=== PATIENT | male | born 1945 | race Caucasian/White ===

== ENCOUNTER → 2020-05-06 10:34 | Outpatient (BNVA) | payer MEDICARE, SELFPAY | PROVIDERS: PCP Internal Medicine; Referring Provider Internal Medicine; Visit Provider Hospitalist | DX: J44.9 Chronic obstructive pulmonary disease, unspecified (principal); Z86.711 Personal history of pulmonary embolism | CPT/HCPCS: 99214 ==

== ENCOUNTER 2020-06-07 16:23 | Outpatient (REF) | payer MEDICARE, SELFPAY ==
--- NOTE | 2020-06-07 16:26 | CT_ITS ---
EXAMINATION: CT CHEST SCREENING CLINICAL INFORMATION: Lung cancer screening COMPARISON: Previous chest CT scans most recent July 2019 and chest x-ray most recent January 2020 TECHNIQUE: Multidetector volumetric CT imaging of the chest is performed without contrast using low dose technique. Additional 2D coronal and sagittal reformatted images and axial 3D maximum intensity projection (MIP) images are generated on the CT workstation. This CT examination was performed using dose optimization techniques as appropriate, variously including the following: *Automated exposure control *Adjustment of mA and/or kV according to patient size (this includes techniques or standardized protocols for targeted exams where dose is matched to indication/reason for exam; i.e. extremities or head) *Use of iterative reconstruction technique DLP: 55 mGy-cm FINDINGS: LUNGS: There is biapical pleural and parenchymal scarring. The small calcified and noncalcified pulmonary nodules are stable. Largest pulmonary nodule is a 3 mm peripheral or subpleural left lower lobe nodule axial image 434 series 5. The previously identified bronchopneumonia on July 2019 CTA has significantly improved. There is increasing subsegmental atelectasis or scarring at the lung bases. No endobronchial or endotracheal lesion. MEDIASTINUM: There is mild coronary artery calcification and aortic calcification. The mediastinum is otherwise normal. PLEURA: There is no pleural effusion. No pleural mass or thickening. AXILLA: No lymphadenopathy. UPPER ABDOMEN: Unremarkable OSSEOUS STRUCTURES: There are mild degenerative changes of the spine. CT/CT lung screening IMPRESSION: Stable small pulmonary nodules. Resolved bronchopneumonia from July 2019 chest CTA. Increasing atelectasis or scarring at the lung bases. Mild atherosclerotic disease and coronary artery calcification. ASSESSMENT: Lung-RADS category 2: Benign RECOMMENDATION: Annual low-dose chest CT follow-up recommended.
== END 2020-06-07 16:24 | disposition home or self-care (01) ==
LOC: HO.CT 16:23
PROVIDERS: Visit Provider Surgery
DX: Z12.2 Encounter for screening for malignant neoplasm of respiratory organs (principal); Z87.891 Personal history of nicotine dependence
CPT/HCPCS: 71250

== ENCOUNTER 2020-11-04 09:04 | Outpatient (REF) | payer MEDICARE, SELFPAY ==
--- NOTE | 2020-11-04 17:28 | PFT_ITS ---
Forced vital capacity moderately reduced. FEV1, EBT19-92 and MVV are markedly reduced. Post bronchodilator therapy, there is a significant improvement in FVC, FEV1, and GEB42-37. Total lung capacity normal. Residual volume is markedly increased. Diffusion capacity markedly decreased. CONCLUSION: Severe obstructive airway disorder with evidence of air trapping. Significant improvement after bronchodilator therapy is indicative of asthma/COPD overlap syndrome. Clinical correlation is recommended. MD WILLIAM Huertas/MONICO / [id number]
== END 2020-11-04 09:05 | disposition home or self-care (01) ==
LOC: HO.RESP 09:04
PROVIDERS: PCP Internal Medicine; Visit Provider Hospitalist
DX: J44.9 Chronic obstructive pulmonary disease, unspecified (principal)
CPT/HCPCS: 94060; 94727; 94729; 99212

== ENCOUNTER → 2022-01-10 09:17 | Outpatient (BNVA) | payer MEDICARE, SELFPAY | PROVIDERS: PCP Internal Medicine; Visit Provider Hospitalist | DX: J43.2 Centrilobular emphysema (principal) | CPT/HCPCS: Q3014 ==

== ENCOUNTER 2022-01-18 08:04 | Outpatient (REF) | payer MEDICARE, SELFPAY ==
--- NOTE | ~2022-01-18 | CT_ITS ---
EXAMINATION: CT CHEST SCREENING CLINICAL INFORMATION: Former smoker. Quit 10 years ago. 50 pack-year history. COMPARISON: Previous chest CT May 2020 TECHNIQUE: Multidetector volumetric CT imaging of the chest is performed without contrast using low dose technique. Additional 2D coronal and sagittal reformatted images and axial 3D maximum intensity projection (MIP) images are generated on the CT workstation. This CT examination was performed using dose optimization techniques as appropriate, variously including the following: *Automated exposure control *Adjustment of mA and/or kV according to patient size (this includes techniques or standardized protocols for targeted exams where dose is matched to indication/reason for exam; i.e. extremities or head) *Use of iterative reconstruction technique DLP: 57 mGy-cm FINDINGS: LUNGS: There is biapical pleural and parenchymal scarring. There is evidence of centrilobular emphysema. There are multiple small clustered peribronchial 1 to 2 mm bilateral lower lobe nodules. There is mild bronchial wall thickening and increased peribronchial attenuation in both lower lobes. This appears slightly increased from previous exam and suggestive of airways disease. Small pulmonary nodules are otherwise stable, largest measuring 3 mm in the peripheral or subpleural left lower lobe axial image 437 series 5. No endobronchial or endotracheal lesion is seen. MEDIASTINUM: There is coronary artery and aortic valve calcification. The mediastinum is otherwise normal. The visualized thyroid gland is normal. PLEURA: There is no pleural effusion. No pleural mass or thickening. AXILLA: No lymphadenopathy. UPPER ABDOMEN: There may be diverticulosis of the colon. OSSEOUS STRUCTURES: There are degenerative changes of the spine. CT/CT lung screening IMPRESSION: Mild emphysema. Stable biapical pleural parenchymal scarring. Small clustered peribronchial bilateral lower lobe nodule nodules, increased peribronchial attenuation and bronchial wall thickening. Findings are suggestive of airways disease. This is new or increased compared to May 2020 exam. Otherwise small coronary nodules are stable. Mild coronary artery and aortic valve calcification. ASSESSMENT: Lung-RADS category 2: Benign RECOMMENDATION: Annual low-dose chest CT follow-up recommended.
== END 2022-01-18 08:05 | disposition home or self-care (01) ==
LOC: HO.CT 08:04
PROVIDERS: PCP Internal Medicine; Visit Provider Physician Assistant Medical
DX: Z12.2 Encounter for screening for malignant neoplasm of respiratory organs (principal); Z87.891 Personal history of nicotine dependence
CPT/HCPCS: 71271

== ENCOUNTER 2023-01-19 07:48 | Outpatient (REF) | payer MEDICARE, SELFPAY ==
--- NOTE | ~2023-01-19 | CT_ITS ---
EXAMINATION: CT CHEST SCREENING CLINICAL INFORMATION: 50 pack year smoking history, quit 10 years ago. COMPARISON: 01/18/2022 TECHNIQUE: Multidetector volumetric CT imaging of the chest is performed without contrast using low dose technique. Additional 2D coronal and sagittal reformatted images and axial 3D maximum intensity projection (MIP) images are generated on the CT workstation. This CT examination was performed using dose optimization techniques as appropriate, variously including the following: *Automated exposure control *Adjustment of mA and/or kV according to patient size (this includes techniques or standardized protocols for targeted exams where dose is matched to indication/reason for exam; i.e. extremities or head) *Use of iterative reconstruction technique DLP: 53.76 mGy-cm FINDINGS: LUNGS: Emphysematous changes are again seen in the lungs. Biapical pleuroparenchymal scarring unchanged. Some mild bronchial thickening is noted, unchanged from prior. Scattered 1 to 2 mm nodules are present including areas in both lower lobes, right greater than left where there are innumerable tiny nodules/tree-in-bud densities which appear minimally more prominent than at the time of the prior study. The largest nodule measures about 4 mm and is pleural-based in the left lower lobe posterolaterally (5:435 compare prior 5:437) and is unchanged from prior. MEDIASTINUM: Heart size normal. No mediastinal or hilar lymphadenopathy. Calcifications are present in the aorta. CORONARY ARTERY CALCIFICATION: Moderate. PLEURA: There is no pleural effusion. No pleural mass or thickening. AXILLA: No lymphadenopathy. UPPER ABDOMEN: Unremarkable. OSSEOUS STRUCTURES: Unremarkable. CT/CT lung screening IMPRESSION: Pulmonary emphysema with peribronchial thickening and micronodules suggestive of airway disease. The number of tiny nodules at the lung bases appears slightly increased when compared to prior. ASSESSMENT: Lung-RADS category 2: Benign RECOMMENDATION: Routine annual low-dose CT screening in 12 months.
== END 2023-01-19 07:49 | disposition home or self-care (01) ==
LOC: HO.CT 07:48
PROVIDERS: PCP Internal Medicine; Visit Provider Physician Assistant Medical
DX: Z12.2 Encounter for screening for malignant neoplasm of respiratory organs (principal); Z87.891 Personal history of nicotine dependence
CPT/HCPCS: 71271

== ENCOUNTER 2023-03-07 18:51 | Emergency (ER) | payer MEDICARE, SELFPAY ==
[2023-03-07 19:08] VITALS: BP 183/78; PULSE 85; RESP 18; TEMP 36.8; O2SAT 95; BMI 25.1
--- NOTE | 2023-03-07 19:08 | ED_ITS ---
HPI - General Adult General Chief complaint: General Medical Stated complaint: high bp Time Seen by Provider: 03/07/23 21:10 Source: patient Mode of arrival: ambulatory Limitations: no limitations History of Present Illness HPI narrative: 77-year-old male who presents emergency department for evaluation of elevated blood pressure. The patient states that it was last appointment with his doctor, approximately 6 months prior, he had an elevated systolic blood pressure of 148. He decided to exercise and lose weight to see if this would improve his blood pressure. He states he has lost 10 lb intentionally. The patient bought a home blood pressure machine. He states that he was feeling well and had no symptoms. He checked his blood pressure at home and it was 186/120. He states that he waited a while then repeated his blood pressure and it was higher therefore he came to the emergency department for evaluation. He states that he has been feeling fine and he has had no symptoms. He denied headache, chest pain, shortness of breath, nausea, vomiting. Related Data Home Medications Medication Instructions Recorded Confirmed atorvastatin 20 mg tablet 20 mg PO DAILY 11/04/20 11/04/20 Previous Rx's Medication Instructions Recorded albuterol sulfate 90 mcg/actuation 2 puff PO Q4H PRN shortness of 01/10/22 aerosol inhaler breath or wheezing #8.5 grams Allergies Allergy/AdvReac Type Severity Reaction Status Date / Time No Known Allergies Allergy Verified 01/10/22 09:18 Review of Systems Review of Systems: Yes all other systems are reviewed and are negative PMFSH Past Medical History [facility] Narrative: Past medical history: Hyperlipidemia. Surgical history: Herniorrhaphy. Social history: The patient denies tobacco, alcohol and drug use. Medical History COPD (chronic obstructive pulmonary disease) Pneumonia Pulmonary embolism Family History Family History Father No problems noted. Social History Social History Patient Tobacco Use Status: Former Tobacco user Tobacco use type: Cigarette Years Smoked: 20 Years Advance Directives: No Advance Directives Information Provided: Yes Physical Exam ED Vital Signs: Vital Signs - 24 hr 03/07/23 19:08 03/07/23 21:09 Temperature 98.2 F 98.4 F Pulse Rate 85 69 Respiratory Rate 18 16 Blood Pressure 183/78 H 172/82 H Pulse Oximetry 95 8 L Oxygen Delivery Method Room Air Room Air BMI result Body Mass Index 25.1 Vital signs reviewed, patient has an elevated BP Exam: General: Awake, alert in no distress Head: Normocephalic, atraumatic EENT: PERRL, Lids normal, sclera normal, conjunctiva normal, nose normal , ears normal, throat without erythema or exudates Neck: Supple, no adenopathy, trachea midline and nontender Lung: breath sounds symmetric, no wheezing, rales or rhonchi Chest: symmetric movement, nontender Heart: regular rate and rhythm, normal S1, S2 no murmurs or rubs Abdomen: soft, non-tender, nondistended, normal bowel sounds Back: no vertebral tenderness, no CVAT Extremities: no deformities, moves all extremities symmetrically Skin: no rashes, no lesion, normal color and warmth Neuro: Awake, alert, oriented, normal speech, cranial nerves intact, moves all extremities symmetrically Psych: Pleasant, cooperative Course Course Course Narrative: RME - 77 yo male with history of COPD presents to the ER for evaluation of elevated BP readings at home. BP readings at home 186/100 and then 200 systolic so he came into the ER for evaluation. He is asymptomatic. He has no chest pain, headache, vision changes. No history of HTN. Not on any antihypertensive meds. Last saw his PCP 6 months ago and BP in the 140 range he thinks. Plan: check basic labs and UA Medical Decision Making Medical Decision Making [facility] Narrative: 77-year-old male who presents emergency department for evaluation of elevated blood pressures. Patient is asymptomatic when he took his blood pressure at home and got an elevated reading of 186/120 and repeat reading was higher. Here in the emergency department patient did have 2 elevated blood pressure readings. The patient's examination was unremarkable. Following evaluation was ordered: CBC, CMP, troponin, urinalysis, 12 EKG. 0: The patient laboratory evaluation was unremarkable except for an elevated glucose of 143. Patient's 12 EKG was normal. Patient's urinalysis revealed no protein. Patient may either have primary hypertension or may just have isolated elevated readings. I did discuss treatment with antihypertensive medications verses monitoring his blood pressure and follow-up with his PCP, patient elected to take his blood pressure readings over the next 2 weeks and follow-up with his PCP to discuss further management. Differential Diagnosis Differential Diagnoses: The differential diagnosis associated with the presentation includes Differential diagnosis includes was not limited to primary hypertension, secondary hypertension, kidney disease, liver disease, stroke, myocardial infarction Admission/Observation Consideration of admission/observation: Escalation of care including admission/observation considered Lab Data MDM Lab Attestation statement: I reviewed the patient's lab results. My independent interpretation of patient's laboratory evaluation is as follows: CBC was normal. Glucose elevated 143. High sensitive troponin I below detectable limits. 03/07/23 19:34 03/07/23 19:34 Labs: Lab Results 03/07/23 03/07/23 03/07/23 Range/Units 19:34 19:34 19:34 WBC 7.1 (4.8-10.8) X10*3/uL RBC 5.16 (4.60-5.80) X10*6/uL Hgb 15.5 (14.0-18.0) g/dl Hct 45.3 (42.0-52.0) % MCV 87.8 (80.0-98.0) fL MCH 30.0 (27.0-33.0) pg MCHC 34.2 (31.0-36.0) g/dl RDW 13.2 (11.0-16.0) % Plt Count 206 (160-400) X10*3/uL MPV 9.2 L (9.4-12.4) fL Immature Gran % (Auto) 0.7 H (0.0-0.4) % Neut % (Auto) 70.1 (45-73) % Lymph % (Auto) 19.0 L (20-40) % [place] % (Auto) 7.9 (2-11) % Eos % (Auto) 1.7 (0-4) % Baso % (Auto) 0.6 (0-2) % Lymph # (Auto) 1.3 (1.2-4.9) X10*3/uL [place] # (Auto) 0.6 (0.1-1.2) X10*3/uL Eos # (Auto) 0.1 (0.0-0.4) X10*3/uL Baso # (Auto) 0.0 (0.0-0.2) X10*3/uL Abs Immat Gran (auto) 0.05 H (0.00-0.03) X10*3/uL Absolute Neuts (auto) 5.0 (2.0-8.3) x10*3/uL Absolute Nucleated RBC 0.000 (0.0-0.012) X10*3/uL Nucleated RBC % (auto) 0.0 (0.0-0.2) /100WBC Sodium 144 (135-145) mmol/L Potassium 4.1 (3.3-5.1) mmol/L Chloride 106 (96-108) mmol/L Carbon Dioxide 27 (22-29) mmol/L Anion Gap 15 (12-20) BUN 19 H (9-16) mg/dL Creatinine 1.02 (0.5-1.4) mg/dL Estim Creat Clear Calc 60.6 Estimated GFR > 60 Random Glucose 143 H (60-115) mg/dL Calcium 9.7 (8.4-10.2) mg/dL Troponin I High Sens < 2.7 (<3.5-35.0) ng/L Independent Interpretation I performed an independent interpretation of an: EKG Interpretation: My independent interpretation of the patient's 12 EKG done at 19:29 hours is as follows: Normal sinus rhythm with a rate of 76, normal IL interval, QRS duration QTC interval, no ST segment elevation, no ST segment depression no significant T-wave abnormalities. There is no previous EKG for comparison. Discharge Plan Discharge Clinical Impression: High blood pressure Qualifiers: Hypertension type: unspecified Qualified Code(s): I10 - Essential (primary) hypertension Patient Disposition: Home, Self-Care Additional Instructions: You had 2 elevated blood pressure readings here in the emergency department, 183/78 and 172/82. A normal blood pressure is usually 120/80. Your blood work today included a complete blood count (CBC), comprehensive metabolic panel (CMP), high sensitive troponin I, and urinalysis. The only abnormality was an elevated blood glucose (sugar) of 143. This could be normal for you and does not mean that you have diabetes. Your 12 EKG was also normal with no evidence of current our previous heart attack on the EKG. The reason to treat elevated blood pressure is to reduce your risk over time for stroke, heart attack and kidney failure. Take your blood pressure in the mornings on Wednesdays and Fridays for 2 weeks. Write these blood pressure readings down and show them to your doctor to determine if you need to be on blood pressure medications or if you need to continue to try to modify your life happened such as losing weight and exercising. If you get started on blood pressure medications it takes 6-8 weeks for these medications to work and sometimes the medication dose needs to be increased by your provider in order to get your blood pressure under better control. Follow-up with your doctor in 2 days. Please return to the emergency department if your symptoms get worse or if you develop any symptoms that are concerning to you. Prescriptions: No Action atorvastatin 20 mg tablet 20 mg PO DAILY albuterol sulfate 90 mcg/actuation HFA aerosol inhaler 2 puff PO Q4H PRN (Reason: shortness of breath or wheezing) Qty: 8.5 11RF
--- NOTE | 2023-03-07 19:17 | ECG_ITS ---
Test Reason : HYPERTENSION Blood Pressure : / mmHG Vent. Rate : 076 BPM Atrial Rate : 076 BPM P-R Int : 164 ms QRS Dur : 082 ms QT Int : 354 ms P-R-T Axes : 081 031 075 degrees QTc Int : 398 ms Normal sinus rhythm Nonspecific T wave abnormality Abnormal ECG No previous ECGs available Referred By: Shaniqua Cook Electronically Signed By:Parag Warren
[2023-03-07 19:40] LABS: MANUAL DIFF FLAG NO
[2023-03-07 19:48] LABS: Basophils Percent Auto 0.6 % (0-2); Eosinophils Absolute Auto 0.1 X10*3/uL (0.0-0.4); Eosinophils Percent Auto 1.7 % (0-4); Hematocrit 45.3 % (42.0-52.0); Hemoglobin 15.5 g/dl (14.0-18.0); Imm Gran Abs Auto 0.05 X10*3/uL (0.00-0.03); Imm Gran Pct Auto 0.7 % (0.0-0.4); Lymphocytes Absolute Auto 1.3 X10*3/uL (1.2-4.9); Mean Corpuscular HGB Conc 34.2 g/dl (31.0-36.0); Mean Corpuscular Volume 87.8 fL (80.0-98.0); Mean Platelet Volume 9.2 fL (9.4-12.4); Monocytes Absolute Auto 0.6 X10*3/uL (0.1-1.2); Monocytes Percent Auto 7.9 % (2-11); Neutrophils Percent Auto 70.1 % (45-73); Platelet Count 206 X10*3/uL (160-400); Red Blood Count 5.16 X10*6/uL (4.60-5.80); Red Cell Distribution Width 13.2 % (11.0-16.0); White Blood Count 7.1 X10*3/uL (4.8-10.8)
[2023-03-07 19:58] LABS: Anion Gap 15 (12-20); Blood Urea Nitrogen 19 mg/dL (9-16); Calcium 9.7 mg/dL (8.4-10.2); Carbon Dioxide 27 mmol/L (22-29); Chloride 106 mmol/L (96-108); Creatinine Clr Calc Pharmacy 60.6; Estimated Glomerular Filt Rate > 60; Glucose Random 143 mg/dL (60-115); Potassium 4.1 mmol/L (3.3-5.1); Sodium 144 mmol/L (135-145)
[2023-03-07 20:07] LABS: Troponin-I High Sensitivity < 2.7 ng/L (<3.5-35.0)
[2023-03-07 21:09] VITALS: BP 172/82; PULSE 69; RESP 16; TEMP 36.9; O2SAT 98
--- NOTE | 2023-03-07 21:18 | MHC.EDTECH ---
this pct just assumed care of patient ,vitals sign taken ,pt urine sample collected and sent to lab .
[2023-03-07 21:24] LABS: Appearance Urine Clear; Color Urine Yellow; Glucose Urine UA Negative (Negative); Leukocyte Esterase Urine Negative (Negative); Nitrite Urine Negative (Negative); PH 6.5 (5.0-9.0); Specific Gravity - Urine 1.025 (1.005-1.025); Urine Blood Negative (Negative); Urine Ketones Trace mg/dL (Negative); Urine Protein Negative (Neg-Trace)
[2023-03-07 21:52] VITALS: BP 170/75; PULSE 66; RESP 18; O2SAT 95
== END 2023-03-07 21:54 | disposition home or self-care (01) ==
PROVIDERS: Physician Assistant; Emergency Provider Emergency Medicine Emergency Medical Services
DX: I10 Essential (primary) hypertension (principal); R94.31 Abnormal electrocardiogram [ECG] [EKG]; Z79.899 Other long term (current) drug therapy
CPT/HCPCS: 36415; 80048; 81003; 84484; 85025; 93005; 99283; 99284

== ENCOUNTER → 2023-03-07 19:17 | Outpatient (BNV) | payer MEDICARE, SELFPAY | PROVIDERS: Emergency Provider Emergency Medicine Emergency Medical Services; Visit Provider Internal Medicine Cardiovascular Disease | DX: R94.31 Abnormal electrocardiogram [ECG] [EKG] (principal) | CPT/HCPCS: 93010 ==

== ENCOUNTER 2023-03-12 09:34 | Outpatient (AMB) | payer MEDICARE, SELFPAY ==
--- NOTE | 2023-03-12 09:39 | A.OFFVIS_ITS ---
Intake Vital Signs 03/12/23 09:40 Height 5 ft 9 in Weight 170 lb BMI 25.1 BP 128/70 Blood Pressure Location Lt brachial Position Sitting Pulse 69 Pulse Source Pulse Oximeter Pulse Oximetry (%) 95 Oxygen Delivery Method Room Air Intake Visit Reasons: COPD [employer] Required: No Allergies No Known Allergies Allergy (Verified 03/12/23 09:43) HPI HPI Comments History of Present Illness Details The patient is a 77-year-old gentleman known history of COPD in addition to bilateral pneumonia and pulmonary embolism. he did complete the treatment for the pulmonary emboli and also resolved pneumonia. He did have a repeat chest x-ray demonstrating interval resolution of the airspace disease. Again, I did look at his CT scan of the chest that he had early this year demonstrating the pulmonary emboli in addition to the airspace disease but, no evidence of any nodular densities. He did have some emphysema noted. He has been staying indoors because of the COVID-19 infections. Unfortunate, he did gain some weight. We did talk about the importance of making sure that he does not get any more weight. We did talk about considering underlying pulmonary rehabilitation programs. He will looking to those. In the meantime he is not requiring his rescue inhaler. 01/10/2022 the patient is here for telehealth visit. Overall the patient is doing very well from a respiratory status. He does use a rescue inhaler that is now . I will make sure to send him a new 1. He has not required. The patient has been active without any limitations. He was supposed to take part in the lung cancer screening program he has not had any more CT of the chest. Patient also had history of pulmonary emboli. He was treated with anticoagulation. He is no longer taking anticoagulation he has not had any evidence of any recurrence. He is otherwise without any other complaints per will follow-up in a year's time if he has any issues prior to that he has a call for an appointment. 03/12/2023 the patient is here for pulmonary follow-up visit. The patient continues to do well. He has 1 episode where his blood pressure shot up to 200 systolic. He does have a blood pressure cuff at home. He became very alarming went to the ER. There is blood pressure settle down and currently is doing better overall. He has been breathing well. Denies any shortness of breath. He does have a rescue inhaler available in case he needs it. He also had a CT scan of the chest back in December 2022 which we personally reviewed together in the office. He has stable pulmonary nodules which is reassuring. He is following closely to the lung cancer screening program and he has his last CT scan next year if everything is stable. We did talk about dietary discretion. The patient will take care of himself by limiting his salt intake because likely does because his blood pressure to go up. [facility] Medical History (Updated 03/12/23 @ 22:13 by Santosh Perez MD) COPD (chronic obstructive pulmonary disease) Pneumonia Pulmonary embolism Pulmonary nodules Family History Father No problems noted. Social History Patient Tobacco Use Status: Former Tobacco user Tobacco use type: Cigarette Years Smoked: 20 Years Review of Systems Const Denies night sweats ENT Denies change in voice, Denies lip swelling, Denies mouth pain, Denies nasal congestion, Reports nasal discharge and Denies tongue swelling Card Denies chest pain and Denies dyspnea on exertion Resp Reports cough and Denies dyspnea on exertion GI Denies abdominal pain Musc Denies no additional complaints Neuro Denies Neuro-related abnormal movements Psych Denies no additional complaints Jad/Lymph Denies easy bleeding and Denies lymphadenopathy Aller/Immun Denies lip swelling and Denies tongue swelling Physical Exam Vital Signs: Last Vital Signs Pulse 69 03/12/23 09:40 BP 128/70 03/12/23 09:40 Pulse Ox 95 03/12/23 09:40 Oxygen Delivery Method Room Air 03/12/23 09:40 BMI result Body Mass Index 25.1 Const General: alert HEENT General nose exam: Abnormal external nose present and Nasal discharge present Eyes Pupils: Equal, round and reactive pupils present Neck Neck: Yes normal visual inspection, Yes full ROM and Yes no lymphadenopathy Chest Chest palpation & inspection: normal inspection of the chest Resp Auscultation: diminished lung sounds Cardio Rate: regular rate Rhythm: regular rhythm Heart sounds: S1 normal heart sound present and S2 normal heart sound present GI Palpation (GI): Soft to palpation and nontender Auscultation: normal bowel sounds General: Yes no CVA tenderness Back/Spine/Pelvis Back: no CVA tenderness Skin General skin exam: rashes and/or lesions noted Neuro Cranial nerves: Yes Equal, round and reactive pupils present Assessment & Plan Assessment & Plan (1) COPD (chronic obstructive pulmonary disease): Code(s): J44.9 - Chronic obstructive pulmonary disease, unspecified Qualifiers: COPD type: emphysema Emphysema type: centrilobular Qualified Code(s): J43.2 - Centrilobular emphysema Plan: Short-acting beta agonist as needed pulmonary rehabilitation plan to repeat pulmonary function studies during his next visit in 6 months (2) Pulmonary nodules: Code(s): R91.8 - Other nonspecific abnormal finding of lung field Plan MYLA as needed LDCT F/U 1 year Medications: Refilled albuterol sulfate 90 mcg/actuation 2 puffs PO Q4H PRN 8.5 grams 11RF shortness of breath or wheezing Coding Level of Care Code Est Pt Level 4 (92145) Diagnoses COPD (chronic obstructive pulmonary disease) J43.2 COPD type: emphysema Emphysema type: centrilobular Pulmonary nodules R91.8 Time Spent (min) 17
[2023-03-12 09:40] VITALS: BP 128/70; PULSE 69; O2SAT 95; BMI 25.1
== END 2023-03-12 09:53 | disposition home or self-care (01) ==
PROVIDERS: PCP Internal Medicine; Visit Provider Hospitalist
DX: J43.2 Centrilobular emphysema (principal); R91.8 Other nonspecific abnormal finding of lung field
CPT/HCPCS: 99214

== ENCOUNTER → 2023-03-12 09:34 | Outpatient (BNVA) | payer MEDICARE, SELFPAY | PROVIDERS: PCP Internal Medicine; Visit Provider Hospitalist | DX: J43.2 Centrilobular emphysema (principal); J18.9 Pneumonia, unspecified organism; I26.99 Other pulmonary embolism without acute cor pulmonale; R91.8 Other nonspecific abnormal finding of lung field; Z87.891 Personal history of nicotine dependence | CPT/HCPCS: 99212 ==

== ENCOUNTER 2024-02-28 14:30 | Outpatient (AMB) | payer MEDICARE, SELFPAY ==
[2024-02-28 14:52] VITALS: PULSE 69; O2SAT 94; BMI 25.8
--- NOTE | 2024-02-28 14:52 | MHC.OFFVIS ---
Vital Signs 02/28/24 14:52 Height 5 ft 9 in Weight 175 lb BMI 25.8 Pulse 69 Pulse Source Pulse Oximeter Pulse Oximetry (%) 94 Oxygen Delivery Method Room Air Intake Visit Reasons: copd Emergency Medical Services Coordinator Required: No Allergies No Known Allergies Allergy (Verified 02/28/24 14:54) HPI Comments Details: The patient is a 78-year-old gentleman known history of COPD in addition to bilateral pneumonia and pulmonary embolism. he did complete the treatment for the pulmonary emboli and also resolved pneumonia. He did have a repeat chest x-ray demonstrating interval resolution of the airspace disease. Again, I did look at his CT scan of the chest that he had early this year demonstrating the pulmonary emboli in addition to the airspace disease but, no evidence of any nodular densities. He did have some emphysema noted. He has been staying indoors because of the COVID-19 infections. Unfortunate, he did gain some weight. We did talk about the importance of making sure that he does not get any more weight. We did talk about considering underlying pulmonary rehabilitation programs. He will looking to those. In the meantime he is not requiring his rescue inhaler. 01/10/2022 the patient is here for telehealth visit. Overall the patient is doing very well from a respiratory status. He does use a rescue inhaler that is now . I will make sure to send him a new 1. He has not required. The patient has been active without any limitations. He was supposed to take part in the lung cancer screening program he has not had any more CT of the chest. Patient also had history of pulmonary emboli. He was treated with anticoagulation. He is no longer taking anticoagulation he has not had any evidence of any recurrence. He is otherwise without any other complaints per will follow-up in a year's time if he has any issues prior to that he has a call for an appointment. 03/12/2023 the patient is here for pulmonary follow-up visit. The patient continues to do well. He has 1 episode where his blood pressure shot up to 200 systolic. He does have a blood pressure cuff at home. He became very alarming went to the ER. There is blood pressure settle down and currently is doing better overall. He has been breathing well. Denies any shortness of breath. He does have a rescue inhaler available in case he needs it. He also had a CT scan of the chest back in December 2022 which we personally reviewed together in the office. He has stable pulmonary nodules which is reassuring. He is following closely to the lung cancer screening program and he has his last CT scan next year if everything is stable. We did talk about dietary discretion. The patient will take care of himself by limiting his salt intake because likely does because his blood pressure to go up. 02/28/2024 the patient is here for a pulmonary follow-up visit. Overall he continues to do very well. He is not using any inhalers. The patient does not have any respiratory limitations. He was having some increasing dyspnea on exertion several months ago. Then he started during increasing exercise activity is seen the improvement. This is reassuring. the patient does not have any recent imaging studies. His last CT scan back in 2021 demonstrated stable pulmonary nodules for couple years which is reassuring that the appeared to be benign. The patient also had PFTs back in 2020 demonstrating moderate to severe degree of COPD with a DLCO of 30%. Likely that he still was recovering from pneumonia. Therefore, will plan to repeat his PFTs in a year's time when he comes back. If however he develops any worsening symptoms prior to this visit he can always call and we can address it issues at an earlier time. [facility] Medical History (Updated 03/12/23 @ 22:13 by Santosh Perez MD) Pulmonary nodules Pulmonary embolism Pneumonia COPD (chronic obstructive pulmonary disease) Family History Father No problems noted. Social History Patient Tobacco Use Status: Former Tobacco user Tobacco use type: Cigarette Years Smoked: 20 Years Review of Systems Const Denies night sweats ENT Denies change in voice, Denies lip swelling, Denies mouth pain, Denies nasal congestion, Reports nasal discharge and Denies tongue swelling Card Denies chest pain and Denies dyspnea on exertion Resp Reports cough and Denies dyspnea on exertion GI Denies abdominal pain Musc Denies no additional complaints Neuro Denies Neuro-related abnormal movements Psych Denies no additional complaints Jad/Lymph Denies easy bleeding and Denies lymphadenopathy Aller/Immun Denies lip swelling and Denies tongue swelling Physical Exam Vital Signs: Last Vital Signs Pulse 69 02/28/24 14:52 Pulse Ox 94 02/28/24 14:52 Oxygen Delivery Method Room Air 02/28/24 14:52 BMI result Body Mass Index 25.8 Const General: alert HEENT General nose exam: Abnormal external nose present and Nasal discharge present Eyes Pupils: Equal, round and reactive pupils present Neck Neck: Yes normal visual inspection, Yes full ROM and Yes no lymphadenopathy Chest Chest palpation & inspection: normal inspection of the chest Resp Auscultation: diminished lung sounds Cardio Rate: regular rate Rhythm: regular rhythm Heart sounds: S1 normal heart sound present and S2 normal heart sound present GI Palpation (GI): Soft to palpation and nontender Auscultation: normal bowel sounds General: Yes no CVA tenderness Back/Spine/Pelvis Back: no CVA tenderness Skin General skin exam: rashes and/or lesions noted Neuro Cranial nerves: Yes Equal, round and reactive pupils present Assessment & Plan Assessment & Plan (1) COPD (chronic obstructive pulmonary disease): Code(s): J44.9 - Chronic obstructive pulmonary disease, unspecified Category: Medical Qualifiers: COPD type: emphysema Emphysema type: centrilobular Qualified Code(s): J43.2 - Centrilobular emphysema Plan: Short-acting beta agonist as needed pulmonary rehabilitation plan to repeat pulmonary function studies during his next visit in 6 months (2) Pulmonary nodules: Code(s): R91.8 - Other nonspecific abnormal finding of lung field Category: Medical Plan MYLA as needed PFTs in 1 yr F/U 1 year Orders: Orders PFT pulmonary function test 1 Year J43.2 - Centrilobular emphysema Coding Level of Care Code Est Pt Level 4 (57671) Diagnoses Centrilobular emphysema J43.2 COPD type: emphysema Emphysema type: centrilobular Pulmonary nodules R91.8 Time Spent (min) 16
== END 2024-02-28 15:17 | disposition home or self-care (01) ==
PROVIDERS: PCP Internal Medicine; Visit Provider Hospitalist
DX: J43.2 Centrilobular emphysema (principal); R91.8 Other nonspecific abnormal finding of lung field
CPT/HCPCS: 99214

== ENCOUNTER → 2024-02-28 14:30 | Outpatient (BNVA) | payer MEDICARE, SELFPAY | PROVIDERS: PCP Internal Medicine; Visit Provider Hospitalist | DX: J43.2 Centrilobular emphysema (principal); R91.8 Other nonspecific abnormal finding of lung field | CPT/HCPCS: 99212 ==

== ENCOUNTER 2024-11-12 14:57 | Outpatient (REF) | payer MEDICARE, SELFPAY ==
--- NOTE | 2024-11-12 15:02 | PFT_ITS ---
Indication: COPD Spirometry [FEV1 to FVC 43%; FEV1 1.36 L; FVC 3.17 L. there is a significant response to bronchodilators noted.] Lung Volumes [Total lung capacity 91% predicted; residual volume 107% predicted] Diffusion Capacity [DLCO 54% predicted] Comparisons [none] Interpretation [There is an obstructive ventilatory defect consistent with severe COPD. There is a significant response to bronchodilators noted. Lung volumes are within normal limits. The patient does have a moderate diffusion impairment. Clinical correlation warranted.] MTDD
[2024-11-12 15:51] VITALS: PULSE 73; O2SAT 95
--- OUTSIDE RECORDS SUMMARY | 2024-11-12 17:42 | XMS_ITS | Clinical Summary ---
Author Organization [address] [facility] Address [address] [place] [address] Phone Care Team Providers Care Bleach Range Operator Name Role Phone Cheko Winston MD Primary Care Provider [phone] Allergies No known active allergies Medications betamethasone, augmented, (DIPROLENE) 0.05 % ointment Apply twice a day for 10 days on the elbows Active psyllium husk, aspartame, (Metamucil Sugar-Free, aspart,) 3.4 gram/5.8 gram powder Take 1 Capful by mouth 1 (one) time each day. 510 g 07/03/20 24 Active docusate sodium (Colace) 100 mg capsule Take 1 capsule (100 mg total) by mouth 2 (two) times a day. 60 each 07/03/20 24 Active metroNIDAZOLE (METROGEL) 0.75 % gel Apply twice daily to rosacea for 3 weeks 45 g 3 09/08/19 25 025 Active tamsulosin (FLOMAX) 0.4 mg 24 hr capsule Take 1 capsule (0.4 mg total) by mouth 1 (one) time each day. Capsules should be taken 30 minutes following the same meal each day. 30 each 09/08/19 25 026 Active atorvastatin (LIPITOR) 20 mg tablet TAKE 1 TABLET BY MOUTH EVERY DAY 90 tablet 1 10/28/19 25 Active atorvastatin (LIPITOR) 20 mg tablet Take 1 tablet (20 mg total) by mouth 1 (one) time each day. 025 Discontinued Active Problems Problem Noted Date Diagnosed Date COPD (chronic obstructive pu lmonary disease) ([facility] V24, [facility] V28) 05/01/2024 Hyperlipidemia 05/01/2024 Assessment & Plan (09/08/2024 12:00 PM EST): Continue Lipitor PSA elevation 05/01/2024 Encounters Date Type Department Care Team Description 10/22/2024 Telephone Internal Medicine [address] [phone] Cheko Winston MD Joseph: Lab orders 10/21/2024 Telephone Internal Medicine [address] [phone] Cheko Winston MD Forms: Medical Release Form 09/08/2024 11:15 AM EST Office Visit Internal Medicine [address] [phone] Cheko Winston MD Pure hypercholesterolemia (Primary Dx); Benign prostatic hyperplasia, unspecified whether lower urinary tract symptoms present; Acne rosacea from Last 3 Months Immunizations Name Administration Dates Next Due Influenza trivalent, 0.5mL ( Fluzone High-dose) 65yo and older 05/01/2022,04/25/2021,04/16/2020,04/17,04/25/2017,05/09/2016,05/12/2015 ,08/12/2012 Influenza, Unspecified 04/18/2023,04/13/2019 Moderna (age 6mo & older) Bi valent, COVID-19, 0.5 mL or 0.25 mL dosage 05/01/2022 Moderna SARS-CoV-2 COVID-19, mRNA, LNP-S, preservative free 04/18/2023 Pneumococcal conjugate 13 va lent (Prevnar 13, PCV13) 2mo and older 05/25/2020 Pneumococcal polysaccharide 23 valent (Pneumovax 23) 2yo and older 03/10/2022,03/10/2022 Respiratory syncytial virus (RSV), unspecified 05/14/2023 TD, Adsorbed, Preservative Free 06/11/2017 Tdap Tetanus diptheria acell ular pertussis (Boostrix; Adacel) 7yo and older 10/19/2020 Zoster recombinant (Shingrix ) 19yo and older 04/10/2022,12/23/2021,10/19/2020 Medical History Medical History Date Comments COPD (chronic obstructive pu lmonary disease) ([facility] V24, [facility] V28) 11/01/2017 DX:COPD (chronic o bstructive pulmonary disease) ([facility]) Hyperlipidemia 04/23/2018 DX:Hyperlipidemi a Family History Medical History Relation Name Comments No Known Problems Father No Known Problems Mother Relation Name Status Comments Father Mother Social History Tobacco Use Types Packs/Day Years Used Date Smoking Tobacco: Former Cigarettes 1 08/24/1962 - 06/24/2012 Smokeless Tobacco: Former Alcohol Use Standard Drinks/Week Comments No 0 (1 standard drink = 0.6 oz pur e alcohol) Housing Instability Answer Date Recorde d Are you worried that in the next 2 months you may not have stable housing? No 09/02/2024 Food Access & Nutrition Answer Date Rec orded Do you have access to a vari ety of food including fruits and vegetables? Yes 09/02/2024 Access to Healthcare Answer Date Record ed Within the last 3 months, ho w many times did you visit the emergency department for your medical care? 0 09/02/2024 Health Literacy Answer Date Recorded How often do you need to hav e someone help you when you read instructions, pamphlets, or other written material from your doctor or pharmacy? Never 09/02/2024 Caregiver: How often do you need to have someone help you when you read instructions, pamphlets, or other written material from your doctor or pharmacy? Not on file 09/02/2024 Financial Risk Answer Date Recorded How hard is it for you to pa y for the very basics like food, housing, medical care, and air conditioning / heating? Not very hard 09/02/2024 Transportation Answer Date Recorded Has the lack of transportati on kept you from meetings, work, or from getting things needed for daily living? No Has the lack of transportati on kept you from medical appointments or from getting medications? No 09/02/2024 Social Isolation Answer Date Recorded How often do you feel lonely or isolated from th ose around you? Rarely 09/02/2024 Food Risk Answer Date Recorded Within the past 12 months we worried whether our food would run out before we got money to buy more. Never true 09/02/2024 Within the past 12 months th e food we bought just didn't last and we didn't have money to get more. Never true 09/02/2024 Dependent Care Answer Date Recorded Do you need help finding or paying for care for your loved ones. For example, child development professor or elderly care for an older adult? No 09/02/2024 Education Answer Date Recorded Do you think completing more education or training, like finishing a GED, going to college, or learning a trade, would be helpful for you? No 09/02/2024 Employment and Income Answer Date Recor ded During the last four weeks, have you been actively looking for work? No 09/02/2024 Living Situation Answer Date Recorded What is your living situation? 0 09/02/2024 Sex and Gender Information Value Date Recorded Sex Assigned at Not on file Legal Sex Male 8:24 AM EST Gender Identity Male 09/02/2024 7:04 AM EST Sexual Orientation Straight 09/02/2024 7: 04 AM EST Obstetrics History Last Filed Vital Signs Vital Sign Reading Time Taken Comments Blood Pressure 138/88 09/08/2024 11:33 AM EST Pulse 84 09/08/2024 11:33 AM EST Temperature 36.9 ??C (98.5 ??F) 09/08/2024 11:[address] Respiratory Rate - - Oxygen Saturation 96% 09/08/2024 11:09 AM EST Inhaled Oxygen Concentration - - Weight 76.9 kg (169 lb 9.6 oz) 09/08/2024 11:09 AM EST Height 175.3 cm (5' 9 ) 09/08/2024 11:09 AM EST Body Mass Index 25.05 09/08/2024 11:09 AM EST Plan of Treatment Upcoming Encounters Date Type Department Care Team (Late st Contact Info) Description 03/10/2025 1:15 PM EDT Office Visit Internal Medicine - [place] [address] [facility] [address] [place] [phone] Cheko Winston MD [address] [facility] [address] [place] [address] Health Maintenance Due Date Last Done Comments RSV Immunization Adult Patients (1 - 1-dose 75+ series) 2020 05/14/2023 Hepatitis C Screening 06/05/2024 Social Influencers of Health Screening 09/02/2025 09/02/2024 Depression Screening 09/08/2025 09/08/2024 Falls Risk Assessment 09/08/2025 09/08/2024 Medicare Annual Wellness Visit 09/08/2025 09/08/2024 Cholesterol Screening (Lipid Panel) 01/23/2028 01/22/2023 DTaP,Tdap,and Td Vaccines (2 - Td or Tdap) 10/19/2030 10/19/2020, 06/11/2017 Pneumococcal Vaccine: 50+ Years Completed 03/10/2022, 03/10/2022, 05/25/2020 Zoster Vaccines Completed 04/10/2022, 11/28, 10/19/2020 RSV Immunization Patients Under 20 months Aged Out 05/14/2023 No longer eligible based on patient's age to complete this topic COVID-19 Vaccine Completed 03/28/2024, , 04/18/2023, Additional history exists Influenza Vaccine Completed 03/28/2024, , 05/01/2022, Additional history exists HIB Vaccines Aged Out No longer eligi ble based on patient's age to complete this topic HPV Vaccines Aged Out No longer eligi ble based on patient's age to complete this topic Hepatitis A Vaccines Aged Out No long er eligible based on patient's age to complete this topic Hepatitis B Vaccines Aged Out No long er eligible based on patient's age to complete this topic IPV Vaccines Aged Out No longer eligi ble based on patient's age to complete this topic MMR Vaccines Aged Out No longer eligi ble based on patient's age to complete this topic Meningococcal ACWY Vaccine Aged Out N o longer eligible based on patient's age to complete this topic Meningococcal B Vaccine Aged Out No l onger eligible based on patient's age to complete this topic Varicella Vaccines Aged Out No longer eligible based on patient's age to complete this topic Procedures Procedure Name Priority Date/Time Associated Diagnosis Comments LIPID PANEL Routine 01/22/2023 from Last 3 Months or Most Recently Relevant to Health Maintenance Results * (ABNORMAL) Lipid panel (01/22/2023) LDL/HDL Ratio 3 0 - 4 Triglycerides 75 0 - 150 mg/dL Cholesterol 173 0 - 200 mg/dL HDL 54 >=40 mg/dL LDL Cholesterol 104(A) 0 - 100 mg/dL Blood Venous blood specimen / Unknown us [facility] Provider LAB BLOOD ORDERABLES Karyn l Result from Last 3 Months or Most Recently Relevant to Health Maintenance Insurance [employer] Care Teams Bleach Range Operator Relationship Specialty Start Date End Date Cheko Winston MD [address] [address] PCP - General Internal Medicine 06/04/18
--- OUTSIDE RECORDS SUMMARY | 2024-11-12 17:42 | XMS_ITS | Encounter Summary ---
Author Organization [facility] Address [address] [place] [address] Care Team Providers Care Director Of Casework Services Name Role Phone Cheko Winston MD Primary Care Provider [phone] Reason for Visit * Reason Onset Date Comments [place]: Lab orders 10/22/2024 Encounter Details Date Type Department Care Team ([facility] st Contact Info) Description 10/22/2024 Telephone Internal Medicine - [place] [address] [facility] [address] [place] [phone] Cheko Winston MD 175 [facility] [address] [place] [address] [place]: Lab orders Social History Tobacco Use Types Packs/Day Years [...] for your loved ones. For example, child care centre manager or elderly care for an older adult? [...] Orientation Straight 09/02/2024 7: 04 AM EST documented as of this encounter Progress Notes * Lyla Davila MA - 10/24/2024 2:36 PM EDT Patient would like full blood work orders done as well for his next appt. * Cheko Winston MD - 10/23/2024 4:11 PM EDT PSA has been ordered. Once results come they can fax it to them * Lyla Davila MA - 10/23/2024 12:13 PM EDT Please advice. * Barbra Madison - 10/22/2024 12:56 PM EDT [facility] called and requested the patients last PSA levels and if none were done please order and fax over. Please advise Cb# [phone] documented in this encounter Plan of Treatment Upcoming Encounters Date Type Department Care Team (Late st Contact Info) Description 03/10/2025 1:15 PM EDT Office Visit Internal Medicine - [place] [address] [phone] Cheko Winston MD [address] [phone] documented as of this encounter Visit Diagnoses Not on filedocumented in this encounter Additional Health Concerns Assessment Noted Time PHQ-9 Depression Total Score: 0 09/08/19 25 11:08 AM EST documented as of this encounter Care Teams Director Of Casework Services Relationship Specialty Start Date End Date Cheko Winston MD [address] [id number] PCP - General Internal Medicine 06/04/18 documented as of this encounter
== END 2024-11-12 14:58 | disposition home or self-care (01) ==
LOC: HO.RESP 14:57
PROVIDERS: PCP Internal Medicine; Visit Provider Hospitalist
DX: J43.2 Centrilobular emphysema (principal)
CPT/HCPCS: 94010; 94640; 94727; 94729

== ENCOUNTER → 2024-11-12 15:02 | Outpatient (BNV) | payer MEDICARE, SELFPAY | PROVIDERS: PCP Internal Medicine; Visit Provider Hospitalist | DX: J44.9 Chronic obstructive pulmonary disease, unspecified (principal) | CPT/HCPCS: 94060; 94727; 94729 ==

== ENCOUNTER 2025-02-24 13:01 | Outpatient (AMB) | payer MEDICARE, SELFPAY ==
[2025-02-24 13:04] VITALS: BP 150/64; PULSE 80; O2SAT 94; BMI 26.7
--- NOTE | 2025-02-24 13:04 | MHC.OFFVIS ---
Vital Signs 02/24/25 13:04 Height 5 ft 9 in Weight 180 lb 12.465 oz BMI 26.7 BP 150/64 H Blood Pressure Location Lt brachial Position Sitting Pulse 80 Pulse Source Pulse Oximeter Pulse Oximetry (%) 94 Oxygen Delivery Method Room Air Intake Visit Reasons: COPD/PFT Follow Up Guide Travel Required: No Accompanied by: Self / Same As Patient Allergies No Known Allergies Allergy (Verified 02/24/25 13:08) HPI Comments Details: The patient is a 79-year-old gentleman known history of COPD in addition to bilateral pneumonia and pulmonary embolism. he did complete the treatment for the pulmonary emboli and also resolved pneumonia. He did have a repeat chest x-ray demonstrating interval resolution of the airspace disease. Again, I did look at his CT scan of the chest that he had early this year demonstrating the pulmonary emboli in addition to the airspace disease but, no evidence of any nodular densities. He did have some emphysema noted. He has been staying indoors because of the COVID-19 infections. Unfortunate, he did gain some weight. We did talk about the importance of making sure that he does not get any more weight. We did talk about considering underlying pulmonary rehabilitation programs. He will looking to those. In the meantime he is not requiring his rescue inhaler. 01/10/2022 the patient is here for telehealth visit. Overall the patient is doing very well from a respiratory status. He does use a rescue inhaler that is now . I will make sure to send him a new 1. He has not required. The patient has been active without any limitations. He was supposed to take part in the lung cancer screening program he has not had any more CT of the chest. Patient also had history of pulmonary emboli. He was treated with anticoagulation. He is no longer taking anticoagulation he has not had any evidence of any recurrence. He is otherwise without any other complaints per will follow-up in a year's time if he has any issues prior to that he has a call for an appointment. 03/12/2023 the patient is here for pulmonary follow-up visit. The patient continues to do well. He has 1 episode where his blood pressure shot up to 200 systolic. He does have a blood pressure cuff at home. He became very alarming went to the ER. There is blood pressure settle down and currently is doing better overall. He has been breathing well. Denies any shortness of breath. He does have a rescue inhaler available in case he needs it. He also had a CT scan of the chest back in December 2022 which we personally reviewed together in the office. He has stable pulmonary nodules which is reassuring. He is following closely to the lung cancer screening program and he has his last CT scan next year if everything is stable. We did talk about dietary discretion. The patient will take care of himself by limiting his salt intake because likely does because his blood pressure to go up. 02/28/2024 the patient is here for a pulmonary follow-up visit. Overall he continues to do very well. He is not using any inhalers. The patient does not have any respiratory limitations. He was having some increasing dyspnea on exertion several months ago. Then he started during increasing exercise activity is seen the improvement. This is reassuring. the patient does not have any recent imaging studies. His last CT scan back in 2021 demonstrated stable pulmonary nodules for couple years which is reassuring that the appeared to be benign. The patient also had PFTs back in 2020 demonstrating moderate to severe degree of COPD with a DLCO of 30%. Likely that he still was recovering from pneumonia. Therefore, will plan to repeat his PFTs in a year's time when he comes back. If however he develops any worsening symptoms prior to this visit he can always call and we can address it issues at an earlier time. 02/24/2025 the patient is here for pulmonary follow-up visit. Overall he is doing well. He exercises regularly. He does complaint of dyspnea on exertion. Dvwd-ac-ipgrumia severity. He does not use his rescue inhaler. He does not want to get dependent on it. He did undergo pulmonary function studies which we personally reviewed. He does have a severe obstruction and does have a significant response to bronchodilators. I did encourage him to try Anoro in order to improve his airway capacity. The patient is willing to try it although we have to send to the pharmacy and see the cost of the inhaler. If they do not covered or if it is expensive we can try it other alternatives. In the meantime his last CT scan 2022 was a rads 1. He outgrew the lung cancer screening program. Currently stable micro nodules. No additional imaging at this point. [facility] Medical History (Updated 08/14/23 @ 22:13 by Santosh Perez MD) Pulmonary nodules Pulmonary embolism Pneumonia COPD (chronic obstructive pulmonary disease) Family History Father No problems noted. Social History Patient Tobacco Use Status: Former Tobacco user Tobacco use type: Cigarette Years Smoked: 20 Years Review of Systems Const Denies night sweats ENT Denies change in voice, Denies lip swelling, Denies mouth pain, Denies nasal congestion, Reports nasal discharge and Denies tongue swelling Card Denies chest pain and Reports dyspnea on exertion Resp Reports cough and Reports dyspnea on exertion GI Denies abdominal pain Musc Denies no additional complaints Neuro Denies Neuro-related abnormal movements Psych Denies no additional complaints Jad/Lymph Denies easy bleeding and Denies lymphadenopathy Aller/Immun Denies lip swelling and Denies tongue swelling Physical Exam Vital Signs: Last Vital Signs Pulse 80 02/24/25 13:04 BP 150/64 H 02/24/25 13:04 Pulse Ox 94 02/24/25 13:04 Oxygen Delivery Method Room Air 02/24/25 13:04 BMI result Body Mass Index 26.7 Const General: alert HEENT General nose exam: Abnormal external nose present and Nasal discharge present Eyes Pupils: Equal, round and reactive pupils present Neck Neck: Yes normal visual inspection, Yes full ROM and Yes no lymphadenopathy Chest Chest palpation & inspection: normal inspection of the chest Resp Auscultation: diminished lung sounds Cardio Rate: regular rate Rhythm: regular rhythm Heart sounds: S1 normal heart sound present and S2 normal heart sound present GI Palpation (GI): Soft to palpation and nontender Auscultation: normal bowel sounds General: Yes no CVA tenderness Back/Spine/Pelvis Back: no CVA tenderness Skin General skin exam: rashes and/or lesions noted Neuro Cranial nerves: Yes Equal, round and reactive pupils present Assessment & Plan Assessment & Plan (1) COPD (chronic obstructive pulmonary disease): Code(s): J44.9 - Chronic obstructive pulmonary disease, unspecified Category: Medical Qualifiers: COPD type: emphysema Emphysema type: centrilobular Qualified Code(s): J43.2 - Centrilobular emphysema Plan: Short-acting beta agonist as needed pulmonary rehabilitation plan to repeat pulmonary function studies during his next visit in 6 months (2) Pulmonary nodules: Code(s): R91.8 - Other nonspecific abnormal finding of lung field Category: Medical Plan MYLA as needed start Anoro daily F/U 1 year Medications: New umeclidinium-vilanterol 62.5-25 mcg/actuation (Anoro Ellipta) 1 inh inhalation DAILY 60 ea 11RF J44.89 - Other specified chronic obstructive pulmonary disease Coding Level of Care Code Est Pt Level 4 (34693) Diagnoses Centrilobular emphysema J43.2 COPD type: emphysema Emphysema type: centrilobular Pulmonary nodules R91.8 Time Spent (min) 16
--- OUTSIDE RECORDS SUMMARY | 2025-02-24 13:47 | XMS_ITS ---
Author Name [facility] Organization Unknown Care Team Organization Name Specialty Phone Email Start Date End Da te [facility] SHIMA SCHNEIDER Primary Care 06/06/2022 03/17/20 24
--- OUTSIDE RECORDS SUMMARY | 2025-02-24 13:47 | XMS_ITS | Clinical Summary ---
Author Organization [address] [facility] Address [address] [place] [address] Phone Care Team Providers Care Geothermal Technician Name Role Phone Cheko Winston MD Primary Care Provider [phone] Allergies No known active allergies Medications betamethasone, augmented, (DIPROLENE) 0.05 % ointment Apply twice a day for 10 days on the elbows Active psyllium husk, aspartame, (Metamucil Sugar-Free, aspart,) 3.4 gram/5.8 gram powder Take 1 Capful by mouth 1 (one) time each day. 510 g 11 4 Active docusate sodium (Colace) 100 mg capsule Take 1 capsule (100 mg total) by mouth 2 (two) times a day. 60 each 4 Active metroNIDAZOLE (METROGEL) 0.75 % gel Apply twice daily to rosacea for 3 weeks 45 g 3 5 05/06/20 25 Active tamsulosin (FLOMAX) 0.4 mg 24 hr capsule Take 1 capsule (0.4 mg total) by mouth 1 (one) time each day. Capsules should be taken 30 minutes following the same meal each day. 30 each 11 5 09/08/19 26 Active atorvastatin (LIPITOR) 20 mg tablet TAKE 1 TABLET BY MOUTH EVERY DAY 90 tablet 1 5 Active Active Problems Problem Noted Date Diagnosed Date COPD (chronic obstructive pu lmonary disease) ([facility] V24, [facility] V28) 05/01/2024 Hyperlipidemia 05/01/2024 Assessment & Plan (09/08/2024 12:00 PM EST): Continue Lipitor PSA elevation 05/01/2024 Immunizations Name Administration Dates Next Due Influenza [...] Comments COPD (chronic obstructive pu lmonary disease) ([facility] V24, [facility] V28) 11/01/2017 DX:COPD (chronic o bstructive pulmonary disease) ([facility]) Hyperlipidemia 04/23/2018 DX:Hyperlipidemi a Family History Medical [...] your loved ones. For example, child care leader or elderly care for an older adult? [...] 84 09/08/2024 11:33 AM EST Temperature 36.9 C (98.5 F) 09/08/2024 11:09 AM EST Respiratory Rate - - Oxygen Saturation 96% [...] PM EDT Office Visit Internal Medicine - [place] [address] [facility] [address] [place] [address] Cheko Winston MD [address] [facility] [address] [place] [address] Health Maintenance Due Date Last Done Comments RSV Immunization Adult Patients (1 - 1-dose 75+ series) 2020 05/14/2023 Hepatitis C Screening 06/05/2024 COVID-19 Vaccine ( season) 2024 03/28/2024, 10/12/2023, 04/18/2023, Additional history exists Influenza Vaccine (#1) 2025 , 04/18/2023, 05/01/2022, Additional history exists Social Influencers of Health Screening 09/02/2025 09/02/2024 Falls Risk Assessment 09/08/2025 09/08/2024 Medicare Annual Wellness Visit 09/08/2025 09/08/2024 Cholesterol Screening (Lipid Panel) 01/23/2028 01/22/2023 DTaP,Tdap,and Td Vaccines (2 - Td or Tdap) 10/19/2030 10/19/2020, 06/11/2017 Pneumococcal Vaccine: 50+ Years Completed 03/10/2022, 03/10/2022, 05/25/2020 Zoster Vaccines Completed 04/10/2022, 11/28, 10/19/2020 RSV Immunization Patients Under 20 months Aged Out 05/14/2023 No longer eligible based on patient's age to complete this topic Depression Screening Completed 09/08/2024 HIB Vaccines Aged Out No longer eligi [...] mg/dL Blood Venous blood specimen / Unknown Historical Provider LAB BLOOD ORDERABLES Karyn l Result from Last 3 Months or Most Recently Relevant to Health Maintenance Insurance [employer] Care Teams Geothermal Technician Relationship Specialty Start Date End Date Cheko Winston MD [address] [id number] PCP - General Internal Medicine 06/04/18
== END 2025-02-24 14:51 | disposition home or self-care (01) ==
LOC: HO.HPS 13:02
PROVIDERS: PCP Internal Medicine; Visit Provider Hospitalist
DX: J43.2 Centrilobular emphysema (principal); R91.8 Other nonspecific abnormal finding of lung field
CPT/HCPCS: 99214

== ENCOUNTER → 2025-02-24 13:01 | Outpatient (BNVA) | payer MEDICARE, SELFPAY | PROVIDERS: PCP Internal Medicine; Visit Provider Hospitalist | DX: J43.2 Centrilobular emphysema (principal); R91.8 Other nonspecific abnormal finding of lung field; J44.89 Other specified chronic obstructive pulmonary disease | CPT/HCPCS: 99212 ==